=== PATIENT | female | born 1955 | race Caucasian/White ===

== ENCOUNTER → 2024-07-15 | Outpatient (CLI) | payer BC, SELFPAY ==
--- NOTE | 2024-07-15 10:15 | RAD_ITS ---
STUDY: X-RAY - PELVIS REASON FOR EXAM: Female, 68 years old. Pain. TECHNIQUE: One view of the pelvis was obtained. COMPARISON: None. FINDINGS: Normal bowel gas pattern with air seen to the rectosigmoid. Phleboliths. Osteopenia. Normal bilateral iliac wings, sacroiliac joints and visualized sacrum. Normal visualized bilateral superior and inferior pubic rami. Normal pubic symphysis. Normal ischial tuberosities. Mild arthrosis of both hips. 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 Electronically Signed: Declan Peralta MD at 10:42 EDT ,
--- NOTE | 2024-07-15 10:15 | RAD_ITS ---
STUDY: X-RAY - LEFT HAND REASON FOR EXAM: Female, 68 years old. Pain. TECHNIQUE: 3 view(s) of the hand. COMPARISON: None. FINDINGS: Osteopenia. Normal radiocarpal articulation. Mild arthrosis of the distal radioulnar joint. Normal carpal bones. Moderate arthrosis of the radial carpal row. Moderate arthrosis of the first CMC joint. Normal second through fifth carpometacarpal joints. Moderate arthrosis of the MCP and IP joints. Normal soft tissues. RAD/Hand Min 3 Views IMPRESSION: Osteopenia with osteoarthritic changes as described. Electronically Signed: Declan Peralta MD at 10:44 EDT ,
--- NOTE | 2024-07-15 10:15 | RAD_ITS ---
STUDY: X-RAY - RIGHT HAND REASON FOR EXAM: Female, 68 years old. Pain. TECHNIQUE: 3 view(s) of the hand. COMPARISON: None. FINDINGS: Osteopenia. Normal radiocarpal articulation. Mild arthrosis of the distal radioulnar joint. Cystic changes in the scaphoid and capitate. Moderate arthrosis of the radial carpal row. Moderate arthrosis of the first CMC joint. Normal second through fifth carpometacarpal joints. Moderate arthrosis of the MCP and IP joints. Normal soft tissues. RAD/Hand Min 3 Views IMPRESSION: Osteopenia with osteoarthritic changes as described. Electronically Signed: Declan Peralta MD at 10:43 EDT ,
[2024-07-15 12:31] LABS: Absolute Lymphocyte Count 1.36 X10^3/uL (0.83-4.51); Absolute Neutrophil Count 3.7 X10^3/uL (2.0-7.7); Basophil# 0.07 X10^3/uL; Basophil% 1.2 % (0-1); Eosinophil# 0.07 X10^3/uL; Eosinophils% 1.2 % (0-5); Hematocrit 38.3 % (37-47); Hemoglobin 12.8 g/dL (12.0-15.0); Lymphocyte # 1.36 X10^3/ul (0.83-4.51); Mean Corp Hgb Conc 33.4 g/dL (32-36); Mean Corpuscular Hgb 28.3 pg (27.0-32.0); Mean Corpuscular Volume 84.5 fL (81-99); Mean Platelet Vol. 8.8 fl (6.2-12.0); Monocyte# 0.51 X10^3/uL; NRBC Flagged by Analyzer 0 % (0-5); Neutrophil # 3.65 X10^3/uL (2.7-7.7); Neutrophil % 64.4 % (47-70); Platelet Count 245 K/mm3 (150-450); RBC Distribution Width CV 13.3 % (11.6-14.6); RBC Distribution Width SD 41.1 fl (35.1-43.9); Red Blood Count 4.53 M/mm3 (4.2-5.4); White Blood Count 5.7 K/mm3 (4.4-11.0)
[2024-07-15 12:33] LABS: Erythrocyte Sedimentation Rate 6 mm/hr (0-30)
[2024-07-15 13:01] LABS: AST(SGOT) 20 U/L (15-37); Alanine Aminotransfer ALT/SGPT 16 U/L (13-56); Albumin, Serum 3.7 g/dL (3.2-5.0); Alkaline Phosphatase 74 U/L (45-117); Anion Gap 9 (5-15); BUN 14 mg/dL (7-18); BUN/Creat Ratio 15.9 RATIO (10-20); CRP < 2.90 mg/L (0.0-3.0); Calcium,Total 9.3 mg/dL (8.5-10.1); Chloride 106 mmol/L (98-107); Creatinine, Serum 0.88 mg/dL (0.55-1.02); EST Glomerular Filtration Rate 68 mL/min (>60); Est Glom Filt Rate - Afr Amer 82 mL/min (>60); Globulin 3.7 g/dL (2.2-4.2); Glucose 130 mg/dL (74-106); Potassium 3.3 mmol/L (3.5-5.1); Protein, Total 7.4 g/dL (6.4-8.2); Sodium Level 139 mmol/L (136-145)
[2024-07-15 13:13] LABS: Hepatitis B Surface Antibody Non-Reactive; Hepatitis B Surface Antigen Non-Reactive (Nonreactive); Hepatitis C Antibody Non-Reactive (Nonreactive)
[2024-07-16 12:09] LABS: CCP IgG Antibodies > 250 units (0-19)
[2024-07-16 14:09] LABS: ANTINUCLEAR ANTIBODIES DIRECT Negative (Negative)
== END | disposition home or self-care (01) ==
PROVIDERS: PCP Student in an Organized Health Care Education/Training Program; Referring Provider Internal Medicine Rheumatology; Visit Provider Internal Medicine Rheumatology
DX: M06.4 Inflammatory polyarthropathy (principal); Z79.899 Other long term (current) drug therapy
CPT/HCPCS: 36415; 72170; 73130; 80053; 85025; 85652; 86038; 86140; 86200; 86431; 86706; 86803; 87340